=== PATIENT | female | born 1985 | race Asian ===

== ENCOUNTER 2017-08-24 20:04 | Emergency (ER) | payer OTHER ==
[2017-08-24 20:14] VITALS: BMI 26.0
[2017-08-24] MEDS ORDERED: SODIUM CHLORIDE 1,000 ML IV STA (20:40)
--- NOTE | 2017-08-24 20:40 | PDOC ---
History of Present Illness <FelixJosy - Last Filed: 08/25/17 03:10> - General History Source: Patient Exam Limitations: No Limitations - History of Present Illness Initial Comments: 08/24/17 21:42 32-year-old female without any medical history presents to the emergency department complaining of epigastric abdominal discomfort described as 4/10 dull nonradiating intermittent discomfort after having 2 bouts of vomiting/ nonbloody, nonbilious after having takeout dinner last evening. This afternoon while at work, patient states she was hyperventilating for approximately 15 mins causing her hands to contract, tingling sensation around her mouth. Patient denies fever, chills, nausea/vomiting, visual disturbance, neck pain/ stiffness, back pains, chest pain, shortness of breath, abdominal pains, flank pains, urinary symptoms. Timing/Duration: 4-6 hours <GautamEric - Last Filed: 08/25/17 05:32> - General Chief Complaint: Syncope/Near Syncope Stated Complaint: SYNCOPE Time Seen by Provider: 08/24/17 20:26 Past History <Josy Washington - Last Filed: 08/25/17 03:10> - Past Medical History Asthma: No Cancer: No Cardiac Disorders: No Diabetes: No HTN: No Seizures: No Thyroid Disease: No - Suicide/Smoking/Psychosocial Hx Smoking History: Never smoked Have you smoked in the past 12 months: No Hx Alcohol Use: No Drug/Substance Use Hx: No Substance Use Type: None Hx Substance Use Treatment: No <GautamEric - Last Filed: 08/25/17 05:32> - Past Medical History Allergies/Adverse Reactions: Allergies Allergy/AdvReac Type Severity Reaction Status Date / Time No Known Allergies Allergy Verified 03/10/16 09:58 Home Medications: Ambulatory Orders NK [No Known Home Medication] 08/24/17 Review of Systems - Review of Systems Able to Perform ROS?: Yes Comments:: 08/24/17 21:25 CONSTITUTIONAL: Absent: fever, chills, diaphoresis, generalized weakness, malaise, loss of appetite HEENT: Absent: rhinorrhea, nasal congestion, throat pain, throat swelling, difficulty swallowing, mouth swelling, ear pain, eye pain, visual Changes CARDIOVASCULAR: Absent: chest pain, loss of consciousness, palpitations, irregular heart rate, peripheral edema RESPIRATORY: Absent: cough, shortness of breath, dyspnea with exertion, orthopnea, wheezing, stridor, hemoptysis GASTROINTESTINAL: Absent: abdominal pain, abdominal distension, nausea, vomiting, diarrhea, constipation, melena, hematochezia GENITOURINARY: Absent: dysuria, frequency, urgency, hesitancy, hematuria, flank pain, genital pain MUSCULOSKELETAL: Absent: myalgia, arthralgia, joint swelling SKIN: Absent: rash, itching, pallor HEMATOLOGIC/IMMUNOLOGIC: Absent: easy bleeding, easy bruising, lymphadenopathy, frequent infections ENDOCRINE: Absent: unexplained weight gain, unexplained weight loss, heat intolerance, cold intolerance NEUROLOGIC: Absent: headache, focal weakness or paresthesias, dizziness, unsteady gait, seizure, mental status changes, bladder or bowel incontinence Is the patient limited Kazakh proficient: No <Eric Florez - Last Filed: 08/25/17 05:32> *Physical Exam - Vital Signs Last Vital Signs Temp Pulse Resp BP Pulse Ox 97.9 F 119 H 18 141/89 99 08/24/17 20:10 08/24/17 20:10 08/24/17 20:10 08/24/17 20:10 08/24/17 20:10 <Washington,Josy - Last Filed: 08/25/17 03:10> - Vital Signs Last Vital Signs Temp Pulse Resp BP Pulse Ox 97.9 F 119 H 18 141/89 99 08/24/17 20:10 08/24/17 20:10 08/24/17 20:10 08/24/17 20:10 08/24/17 20:10 - Physical Exam Comments: 08/24/17 21:25 GENERAL: Well developed, well nourished. Awake and alert. No acute distress. HEENT: Normocephalic, atraumatic. PERRLA, EOMI. No conjunctival pallor. Sclera are non- icteric. Moist mucous membranes. Oropharynx is clear. NECK: Supple. Full ROM. No JVD. Carotid pulses 2+ and symmetric, without bruits. No thyromegaly. No lymphadenopathy. CARDIOVASCULAR: Regular rate and rhythm. No murmurs, rubs, or gallops. Distal pulses are 2+ and symmetric. PULMONARY: No evidence of respiratory distress. Lungs clear to auscultation bilaterally. No wheezing, rales or rhonchi. ABDOMINAL: Soft. Non-tender. Non-distended. No rebound or guarding. No organomegaly. Normoactive bowel sounds. MUSCULOSKELETAL B/L hands contracted Normal range of motion at all joints. No bony deformities or tenderness. No CVA tenderness. EXTREMITIES: No cyanosis. No clubbing. No edema. No calf tenderness. SKIN: Warm and dry. Normal capillary refill. No rashes. No jaundice. NEUROLOGICAL: Alert, awake, appropriate. Cranial nerves 2-12 intact. No deficits to light touch and temperature in face, upper extremities and lower extremities. No motor deficits in the in face, upper extremities and lower extremities. Normoreflexic in the upper and lower extremities. Normal speech. Toes are down- going bilaterally. Gait is normal without ataxia. PSYCHIATRIC: Cooperative. Good eye contact. Appropriate mood and affect. <Eric Florez - Last Filed: 08/25/17 05:32> ED Treatment Course - LABORATORY CBC & Chemistry Diagram: 08/24/17 22:09 08/24/17 22:09 - ADDITIONAL ORDERS Additional order review: Laboratory Results 08/25/17 08/24/17 01:50 22:09 Sodium 140 Potassium 3.0 L D Chloride 107 Carbon Dioxide 23 Anion Gap 10 BUN 8 D Creatinine 0.7 D Creat Clearance w eGFR > 60 Random Glucose 83 Calcium 7.6 L Magnesium 1.9 Total Bilirubin 1.1 H AST 23 ALT 23 Alkaline Phosphatase 83 Total Protein 7.2 Albumin 3.8 Total Amylase 44 Lipase 97 Urine Color Colorless Urine Appearance Clear Urine pH 6.0 Ur Specific [place] 1.008 Urine Protein Negative Urine Glucose (UA) Negative Urine Ketones Trace H Urine Blood 2+ H Urine Nitrite Negative Urine Bilirubin Negative Urine Urobilinogen Negative Urine WBC (Auto) <1 Urine RBC (Auto) 9 Ur Epithelial Cells Rare Urine Bacteria Rare Urine Mucus Rare Urine HCG, Qual Negative 08/24/17 22:09 RBC 4.66 D MCV 88.5 MCHC 33.4 RDW 13.2 D MPV 9.1 Neutrophils % No Result Required. Lymphocytes % No Result Required. - RADIOLOGY Radiology Studies Ordered: Category Date Time Status CHEST PA & LAT [RAD] Stat Radiology 08/25/17 01:29 Ordered - Medications Given in the ED: ED Medications Discontinued Medications Generic Name Dose Route Start Last Admin Trade Name Freq PRN Reason Stop Dose Admin Calcium Chloride 1 gm 08/24/17 23:40 08/25/17 00:12 Calcium Chloride 10% - IVPB 08/24/17 23:41 1 gm ONCE ONE Administration Diphenhydramine HCl 25 mg 08/24/17 20:40 08/24/17 20:57 Benadryl Injection - IVPUSH 08/24/17 20:41 25 mg ONCE ONE Administration Sodium Chloride 1,000 mls @ 1,000 mls/hr 08/24/17 20:40 08/24/17 20:57 Normal Saline - IV 08/24/17 21:39 1,000 mls/hr ASDIR STA Administration Potassium Chloride 10 meq in 100 mls @ 100 mls/hr 08/24/17 23:45 08/25/17 02: 02 Potassium Chloride 10 Meq Premix Ivpb - IVPB 08/25/17 02:44 100 mls/hr Q60M MARISOL Administration Magnesium Sulfate 2 gm 08/24/17 23:40 08/25/17 00:12 Magnesium Sulfate IVPB 08/24/17 23:41 2 gm ONCE ONE Administration Ondansetron HCl 4 mg 08/25/17 00:18 08/25/17 00:27 Zofran Injection IVPB 08/25/17 00:19 4 mg ONCE ONE Administration <Josy Washington - Last Filed: 08/25/17 03:10> - LABORATORY CBC & Chemistry Diagram: 08/24/17 22:09 08/25/17 03:12 <Eric Florez - Last Filed: 08/25/17 05:32> *DC/Admit/Observation/Transfer - Discharge Dispostion Admit: Yes Decision to Admit order Date/Time: 08/25/17 03:11 SHORT STAY: ED OBSERVATION <Josy Washington - Last Filed: 08/25/17 03:10> - Discharge Dispostion Admit: No <Eric Florez - Last Filed: 08/25/17 05:32> Diagnosis at time of Disposition: Hypocalcemia, Tachycardia, Electrolyte abnormality, Hypokalemia - Discharge Dispostion Disposition: HOME Condition at time of disposition: Improved - Patient Instructions Printed Discharge Instructions: DI for Hypokalemia, DI for Hypocalcemia Additional Instructions: Increase fluids Follow up with your physician Return to the ER for severe/persistent/worsening symptoms Progress Note - Progress Note Progress Note: 0500hrs: Pt insists on leaving. States feels much better <Eric Florez - Last Filed: 08/25/17 05:32>
[2017-08-24 22:20] LABS: LYMPH # 0.4 (8-40); MCH 29.6 pg (25.7-33.7); MCHC 33.4 g/dl (32.0-36.0); MEAN CELL VOLUME 88.5 fl (80-96); MEAN PLT VOLUME 9.1 fl (7.5-11.1); MONO # 0.4 # (3.8-10.2); NEUT # 9.3 # (42.8-82.8); PLATELET COUNT 268 K/MM3 (134-434); RDW 13.2 % (11.6-15.6); WHITE BLOOD COUNT 10.2 K/mm3 (4.0-10.0)
[2017-08-24 23:02] LABS: TOTAL CELLS COUNTED 100
[2017-08-24 23:03] LABS: ALBUMIN 3.8 g/dl (3.4-5.0); ALK PHOS 83 U/L (45-117); AMYLASE 44 U/L (25-115); ANION GAP 10 (8-16); BILIRUBIN,TOTAL 1.1 mg/dL (0.2-1.0); CALCIUM 7.6 mg/dL (8.5-10.1); CO2 23 mmol/L (21-32); CREATININE 0.7 mg/dL (0.55-1.02); GLUCOSE,RANDOM 83 mg/dL (74-106); MAGNESIUM 1.9 mg/dL (1.8-2.4); PLATELET ESTIMATE ADEQUATE; SGOT/AST 23 U/L (15-37); SGPT/ALT 23 U/L (12-78); TOT PROT 7.2 g/dl (6.4-8.2)
[2017-08-24] MEDS ORDERED: MAGNESIUM SULF 50% (8.12 MEQ/2 ML-1 GM VIAL) IVPB ONE (23:40)
[2017-08-24] MEDS ORDERED: CALCIUM CHLORIDE 10% 1 GM/10 ML *VIAL IVPB ONE (23:40)
[2017-08-24] MEDS ORDERED: KCL 10 MEQ IVPB 10 MEQ/100 ML INFUS.BAG IVPB ONE (23:53)
[2017-08-24] MEDS ORDERED: MAGNESIUM SULF 50% (8.12 MEQ/2 ML-1 GM VIAL) ONE (23:53)
[2017-08-24] MEDS ORDERED: CALCIUM CHLORIDE 1 GM/10 ML *DISP.SYRIN ONE (23:53)
[2017-08-25] MEDS: KCL 10 MEQ IVPB 10 MEQ/100 ML INFUS.BAG IVPB SCH ×3 (00:12→02:02)
[2017-08-25] MEDS ORDERED: ONDANSETRON 4 MG/2 ML VIAL IVPB ONE (00:18)
[2017-08-25 02:01] LABS: URINE APPEARANCE CLEAR; URINE BILIRUBIN NEGATIVE (NEGATIVE); URINE BLOOD 2+ (NEGATIVE); URINE COLOR COLORLESS; URINE GLUCOSE (UA) NEGATIVE (NEGATIVE); URINE KETONE TRACE (NEGATIVE); URINE LEUK ESTERASE NEGATIVE (NEGATIVE); URINE NITRITE NEGATIVE (NEGATIVE); URINE PROTEIN NEGATIVE (NEGATIVE); URINE UROBILINOGEN NEGATIVE mg/dL (0.2-1.0)
[2017-08-25 02:09] LABS: URINE BACTERIA RARE /hpf (NONE SEEN); URINE MUCUS RARE; URINE RBC 9 /hpf (0-3); URINE WBC <1 /hpf (3-5)
[2017-08-25 03:45] LABS: ALBUMIN 3.6 g/dl (3.4-5.0); ALK PHOS 76 U/L (45-117); ANION GAP 10 (8-16); BILIRUBIN,TOTAL 1.1 mg/dL (0.2-1.0); CALCIUM 8.2 mg/dL (8.5-10.1); CO2 22 mmol/L (21-32); CREATININE 0.6 mg/dL (0.55-1.02); GLUCOSE,RANDOM 106 mg/dL (74-106); SGOT/AST 25 U/L (15-37); SGPT/ALT 27 U/L (12-78); TOT PROT 6.7 g/dl (6.4-8.2)
[2017-08-25 04:19] LABS: ARTERIAL BLD GAS O2 SATURATION 98.8 % (90-98.9); ARTERIAL BLOOD GAS BASE EXCESS -1.7 meq/l (-2-2); ARTERIAL BLOOD GAS HCO3 20.6 meq/L (22-26); ARTERIAL BLOOD GAS pH 7.47 (7.35-7.45)
[2017-08-25 04:31] LABS: ART PUNCT SITE RIGHT RADIAL
[2017-08-25 05:49] VITALS: BP 123/77; PULSE 108; TEMP 98
[2017-08-25 14:04] LABS: URINE LEUK ESTERASE Negative (NEGATIVE)
--- NOTE | 2017-08-25 17:13 | EKG ---
Test Reason : Blood Pressure : / mmHG Vent. Rate : 103 BPM Atrial Rate : 103 BPM P-R Int : 164 ms QRS Dur : 092 ms QT Int : 352 ms P-R-T Axes : 065 016 043 degrees QTc Int : 461 ms SINUS TACHYCARDIA POSSIBLE LEFT ATRIAL ENLARGEMENT INCOMPLETE RIGHT BUNDLE BRANCH BLOCK BORDERLINE ECG NO PREVIOUS ECGS AVAILABLE Confirmed by ALICIA COATES MD ([id number]) on 08/25/2017 5:12:52 PM Referred By: Confirmed By:ALICIA COATES MD
== END 2017-08-25 05:49 | disposition home or self-care (01) ==
LOC: JER 20:04 → UNDOADMOB 08-25 03:11 → JERBED 08-25 03:11 → JER 08-25 05:49
PROC: 3E0337Z Introduction of Electrolytic and Water Balance Substance into Peripheral Vein, Percutaneous Approach (ICD-10-PCS; principal; 2017-08-24)
PROC: 3E033GC Introduction of Other Therapeutic Substance into Peripheral Vein, Percutaneous Approach (ICD-10-PCS; 2017-08-24)
PROC: 3E0337Z Introduction of Electrolytic and Water Balance Substance into Peripheral Vein, Percutaneous Approach (ICD-10-PCS; 2017-08-24)
DX: E87.6 Hypokalemia (principal); E83.51 Hypocalcemia
CPT/HCPCS: 36415; 36600; 80053; 81003; 81015; 82150; 82803; 83690; 83735; 84703; 85025; 93005; 93010; 99285-25

== ENCOUNTER 2024-12-15 06:40 | Day surgery (SDC) | payer BC ==
[2024-12-10 11:42] VITALS: BMI 26.2
[2024-12-15] MEDS: LIDOCAINE HCL 1%, 10 MG/ML (20ML VIAL) INF ONE ×2
[2024-12-15] MEDS: ceFAZolin SODIUM 1 GM VIAL IVPB ONE
[2024-12-15] MEDS ORDERED: LIDOCAINE HCL 1%, 10 MG/ML (20ML VIAL) ONE (08:32)
[2024-12-15] MEDS ORDERED: LIDOCAINE HCL 2% 100 MG/5 ML DISP.SYRIN ONE (09:33)
[2024-12-15] MEDS ORDERED: PROPOFOL 20 ML ONE (09:34)
[2024-12-15] MEDS ORDERED: MIDAZOLAM HCL 2 MG/2 ML SINGLE DOSE VIAL ONE (09:34)
[2024-12-15] MEDS ORDERED: oxyCODONE HCL 5 MG TABLET PO PRN (10:47)
[2024-12-15] MEDS ORDERED: ONDANSETRON 4 MG/2 ML VIAL IVPUSH PRN (10:47)
[2024-12-15] MEDS ORDERED: LACTATED RINGERS SOLUTION 1,000 ML IV SCH (11:00)
[2024-12-15 11:24] VITALS: RESP 16
[2024-12-15 12:03] VITALS: BP 128/84; PULSE 82; TEMP 97.7
== END 2024-12-15 12:06 | disposition home or self-care (01) ==
LOC: JASU-SURG 06:40
PROVIDERS: ATTEND Surgery
PROC: 0HBU0ZZ Excision of Left Breast, Open Approach (ICD-10-PCS; principal; 2024-12-15 09:00)
DX: D24.2 Benign neoplasm of left breast (principal)
CPT/HCPCS: 81025; 88307-TC; 94760